=== PATIENT | female | born 1955 | race Caucasian/White ===

== ENCOUNTER 2016-11-24 12:48 | Inpatient (IN) | payer MEDICAID ==
[~2016-11-24] VITALS: Ht 157.5 cm; Wt 59.5 kg
[2016-11-24 14:00] LABS: Basophils # (auto) 0 uL; Basophils % (auto) 0.5 % (0.0-2.0); DEFINITIVE VIEW TRANSMISSION; Eosinophils # (auto) 0.1 uL; Eosinophils % (auto) 1.1 % (0.0-7.0); Hemoglobin 12.5 g/dL (12.2-16.2); Lymphocytes % (auto) 11.1 % (10.0-50.0); Mean Corpuscular Hemoglobin 35.8 pg (28.0-32.0); Mean Corpuscular Hgb Conc. 33.8 g/dL (32.0-36.0); Mean Corpuscular Volume 105.9 fL (80.0-100.0); Mean Platelet Volume 7.7 fL (7.4-10.4); Monocytes # (auto) 0.9 uL; Neutrophils # (auto) 6.7 uL; Neutrophils % (auto) 77.3 % (37.0-80.0); Platelet Count (auto) 175 10^3/uL (140-450); Red Cell Distribution Width 22.1 % (11.6-16.0); White Blood Cell 8.7 10^3/uL (4.4-10.8)
[2016-11-24 14:30] LABS: Albumin 2.4 g/dL (3.4-5.0); Alkaline Phosphatase 149 U/L (45-117); Anion Gap 10 (5-15); Aspartate Aminotransferase 134 U/L (15-37); BUN/Creatinine Ratio 21.6; Bilirubin, Total 7.3 mg/dL (0.2-1.0); Blood Urea Nitrogen 21 mg/dL (7-18); Calcium 8.8 mg/dL (8.5-10.1); Carbon Dioxide 27 mmol/L (21-32); Chloride 103 mmol/L (98-107); GFR African American 75 mL/min; GFR Non-African American 62 mL/min; Glucose 131 mg/dL (74-106); Magnesium 1.8 mg/dL (1.6-2.6); Potassium 3.4 mmol/L (3.5-5.1); Sodium 140 mmol/L (136-145); Total Protein 7.7 g/dL (6.4-8.2)
[2016-11-24 20:01] LABS: Urine Bilirubin Negative (Negative); Urine Color Yellow (Yellow); Urine Glucose Normal (Normal); Urine Ketone Negative (Negative); Urine Nitrite Negative (Negative); Urine RBC 9 /hpf (0 - 4); Urine Squamous Epithelial Cell FEW /hpf (<5); Urine Urobilinogen Normal (Negative)
[2016-11-24 20:02] LABS: Urine Blood 2+ /uL (Negative)
[2016-11-24] MEDS ORDERED: SODIUM CHLORIDE 0.9% 1,000 ML IVB ONE (20:11)
[2016-11-24] MEDS ORDERED: PANTOPRAZOLE SODIUM 40 MG/10 ML VIAL IV ONE (20:15)
[2016-11-24] MEDS ORDERED: ONDANSETRON HCL 4 MG/2 ML VIAL IV ONE (21:00)
[2016-11-24 21:52] LABS: INR 1.73 (0.9-1.15); Partial Thromboplastin Time 29.1 sec (22.64-33.71); Prothrombin Time 18.5 sec (9.37-12.3)
[2016-11-24] MEDS ORDERED: ACETAMINOPHEN/CODEINE#3 (300/30mg) TAB PO ONE (23:00)
[2016-11-25] VITALS (8 sets, daily range): BP systolic 94–119; BP diastolic 53–63
[2016-11-25] MEDS ORDERED: SODIUM CHLORIDE 0.9% 1,000 ML IV SCH (01:20)
[2016-11-25] MEDS ORDERED: POTASSIUM CHL 20 Meq TABLET PO ONE (01:30)
[2016-11-25] MEDS ORDERED: ACETAMINOPHEN 325 MG TAB PO PRN (01:30)
[2016-11-25] MEDS ORDERED: ONDANSETRON HCL 4 MG/2 ML VIAL IV PRN (01:30)
[2016-11-25 02:11] LABS: Hematocrit 33.7 % (36.0-46.0); Hemoglobin 11.1 g/dL (12.2-16.2)
[2016-11-25] MEDS: HYDROcodone-ACET 5/325MG TAB PO PRN ×3 (09:19→21:54)
[2016-11-25] MEDS ORDERED: PANTOPRAZOLE SODIUM 40 MG/10 ML VIAL IV SCH (10:00)
[2016-11-25] MEDS ORDERED: FUROSEMIDE 40 MG TAB ONE (14:19)
[2016-11-25] MEDS ORDERED: FUROSEMIDE 40 MG TAB PO ONE (14:30)
[2016-11-25] MEDS: LACTULOSE 20Gm/30ML SOLN PO SCH (15:18)
[2016-11-26] VITALS (7 sets, daily range): BP systolic 95–106; BP diastolic 42–69
[2016-11-26] MEDS: HYDROcodone-ACET 5/325MG TAB PO PRN ×4 (02:18→21:30)
[2016-11-26 06:33] LABS: Basophils # (auto) 0 uL; Basophils % (auto) 0.2 % (0.0-2.0); DEFINITIVE VIEW TRANSMISSION; Eosinophils # (auto) 0.1 uL; Hematocrit 33.4 % (36.0-46.0); Hemoglobin 11.4 g/dL (12.2-16.2); Lymphocytes # (auto) 0.4 uL; Lymphocytes % (auto) 2.9 % (10.0-50.0); Mean Corpuscular Hemoglobin 36.5 pg (28.0-32.0); Mean Corpuscular Hgb Conc. 34.1 g/dL (32.0-36.0); Mean Platelet Volume 7.3 fL (7.4-10.4); Monocytes # (auto) 0.9 uL; Monocytes % (auto) 6.5 % (0.0-12.0); Neutrophils # (auto) 12.3 uL; Neutrophils % (auto) 89.4 % (37.0-80.0); Platelet Count (auto) 184 10^3/uL (140-450); White Blood Cell 13.8 10^3/uL (4.4-10.8)
[2016-11-26 06:44] LABS: Red Cell Distribution Width 21.2 % (11.6-16.0)
[2016-11-26 06:45] LABS: Albumin 2.1 g/dL (3.4-5.0); BUN/Creatinine Ratio 20.6; Calcium 7.3 mg/dL (8.5-10.1); Potassium 3.9 mmol/L (3.5-5.1)
[2016-11-26 06:48] LABS: Bilirubin, Total 6.1 mg/dL (0.2-1.0); Total Protein 6.8 g/dL (6.4-8.2)
[2016-11-26 08:40] LABS: Anisocytosis Slight; Macrocytosis Slight; Platelet Estimate Adequate
[2016-11-26] MEDS: LACTULOSE 20Gm/30ML SOLN PO SCH (09:36)
[2016-11-26] MEDS: FUROSEMIDE 20 MG TAB PO SCH (09:40)
[2016-11-26] MEDS ORDERED: cefTRIAXone 1GM/50ML D5W 50 ML IV ONE ×2 (10:00→12:15)
[2016-11-26] MEDS: PANTOPRAZOLE SODIUM 40 MG/10 ML VIAL IV SCH (12:13)
[2016-11-26] MEDS: ALBUMIN 25% 100 ML IV SCH ×2 (12:13→13:39)
[2016-11-26 13:25] LABS: Body Fluid Polymorphonuclear 6 %
[2016-11-27] MEDS: HYDROcodone-ACET 5/325MG TAB PO PRN ×4 (03:30→20:27)
[2016-11-27 05:19] VITALS: BP 105/55
[2016-11-27 06:35] LABS: Basophils # (auto) 0 uL; Basophils % (auto) 0.3 % (0.0-2.0); DEFINITIVE VIEW TRANSMISSION; Eosinophils # (auto) 0.2 uL; Eosinophils % (auto) 3.1 % (0.0-7.0); Hematocrit 28.9 % (36.0-46.0); Hemoglobin 9.8 g/dL (12.2-16.2); Lymphocytes # (auto) 0.5 uL; Mean Corpuscular Hemoglobin 36.6 pg (28.0-32.0); Mean Corpuscular Volume 107.5 fL (80.0-100.0); Mean Platelet Volume 6.6 fL (7.4-10.4); Monocytes # (auto) 0.9 uL; Monocytes % (auto) 15.7 % (0.0-12.0); Neutrophils # (auto) 4.2 uL; Neutrophils % (auto) 71.9 % (37.0-80.0); Platelet Count (auto) 150 10^3/uL (140-450); White Blood Cell 5.9 10^3/uL (4.4-10.8)
[2016-11-27 06:37] LABS: Red Cell Distribution Width 21.4 % (11.6-16.0)
[2016-11-27 07:08] LABS: Albumin 2.2 g/dL (3.4-5.0); BUN/Creatinine Ratio 23.3; Potassium 3.9 mmol/L (3.5-5.1)
[2016-11-27 07:10] LABS: Bilirubin, Total 5.6 mg/dL (0.2-1.0)
[2016-11-27 07:11] LABS: Total Protein 6.2 g/dL (6.4-8.2)
[2016-11-27 08:06] LABS: Anisocytosis Slight; Hypochromia Slight; Platelet Estimate Adequate
[2016-11-27 09:00] VITALS: BP 95/57
[2016-11-27] MEDS ORDERED: cefTRIAXone 1GM/50ML D5W 50 ML IV SCH (09:00)
[2016-11-27] MEDS: PANTOPRAZOLE SODIUM 40 MG/10 ML VIAL IV SCH (10:29)
[2016-11-27] MEDS: FUROSEMIDE 20 MG TAB PO SCH (10:30)
[2016-11-27] MEDS: LACTULOSE 20Gm/30ML SOLN PO SCH (10:34)
[2016-11-27 13:00] VITALS: BP 97/57
[2016-11-27 17:14] VITALS: BP 127/55
[2016-11-27 21:59] VITALS: BP 100/56
[2016-11-28 01:07] LABS: Albumin, Body Fluid 0.3 g/dL (.)
[2016-11-28] MEDS: HYDROcodone-ACET 5/325MG TAB PO PRN ×4 (01:22→16:55)
[2016-11-28 05:05] VITALS: BP 111/64
[2016-11-28 06:11] LABS: Basophils # (auto) 0 uL; Basophils % (auto) 0.4 % (0.0-2.0); DEFINITIVE VIEW TRANSMISSION; Eosinophils # (auto) 0.2 uL; Eosinophils % (auto) 3.9 % (0.0-7.0); Hemoglobin 10.3 g/dL (12.2-16.2); Lymphocytes # (auto) 0.9 uL; Lymphocytes % (auto) 17.2 % (10.0-50.0); Mean Corpuscular Hemoglobin 37.1 pg (28.0-32.0); Mean Corpuscular Hgb Conc. 34.4 g/dL (32.0-36.0); Mean Corpuscular Volume 107.8 fL (80.0-100.0); Mean Platelet Volume 6.6 fL (7.4-10.4); Monocytes % (auto) 17.8 % (0.0-12.0); Neutrophils # (auto) 3.3 uL; Neutrophils % (auto) 60.7 % (37.0-80.0); Platelet Count (auto) 155 10^3/uL (140-450); White Blood Cell 5.4 10^3/uL (4.4-10.8)
[2016-11-28 06:17] LABS: Red Cell Distribution Width 20.8 % (11.6-16.0)
[2016-11-28 06:27] LABS: Potassium 3.6 mmol/L (3.5-5.1)
[2016-11-28 06:38] LABS: Calcium 7.4 mg/dL (8.5-10.1); Phosphorus 2.1 mg/dL (2.5-4.90)
[2016-11-28 07:34] LABS: Anisocytosis Slight; Platelet Estimate Adequate
[2016-11-28 07:35] LABS: Macrocytosis Slight
[2016-11-28 07:56] VITALS: BP 106/54
[2016-11-28] MEDS: LACTULOSE 20Gm/30ML SOLN PO SCH (10:00)
[2016-11-28] MEDS: FUROSEMIDE 20 MG TAB PO SCH (10:30)
[2016-11-28] MEDS: PANTOPRAZOLE SODIUM 40 MG/10 ML VIAL IV SCH (10:32)
[2016-11-28] MEDS ORDERED: FURO20TA PO (11:40)
[2016-11-28] MEDS ORDERED: LACT10SO PO (11:40)
[2016-11-28] MEDS ORDERED: SPIR50TA2 PO (11:40)
[2016-11-28] MEDS ORDERED: PANT40T PO (11:40)
[2016-11-28] MEDS ORDERED: NEUTRA-PHOS TABLET PO ONE (11:45)
[2016-11-28 12:14] VITALS: BP 95/60
[2016-11-28 16:40] VITALS: BP 95/60
[2016-11-28 17:07] VITALS: BP 109/56
== END 2016-11-28 18:45 | disposition home or self-care (01) | DRG 280 ==
LOC: ER 12:48 → EAST 12:49
PROVIDERS: ADMIT Nurse Practitioner; ATTEND Internal Medicine
PROC: 0W9G30Z Drainage of Peritoneal Cavity with Drainage Device, Percutaneous Approach (ICD-10-PCS; principal; 2016-11-24)
DX: K70.31 Alcoholic cirrhosis of liver with ascites (principal); E43 Unspecified severe protein-calorie malnutrition; D68.9 Coagulation defect, unspecified; K57.31 Diverticulosis of large intestine without perforation or abscess with bleeding; E87.1 Hypo-osmolality and hyponatremia; D62 Acute posthemorrhagic anemia; E88.09 Other disorders of plasma-protein metabolism, not elsewhere classified; D75.89 Other specified diseases of blood and blood-forming organs; E87.6 Hypokalemia; I25.10 Atherosclerotic heart disease of native coronary artery without angina pectoris; K42.9 Umbilical hernia without obstruction or gangrene; K80.20 Calculus of gallbladder without cholecystitis without obstruction; R31.9 Hematuria, unspecified; Z88.1 Allergy status to other antibiotic agents; Z88.8 Allergy status to other drugs, medicaments and biological substances; Z68.24 Body mass index [BMI] 24.0-24.9, adult
CPT/HCPCS: 36415; 71010; 74176; 76700; 76942; 80048; 80053; 81001; 82140; 82270; 83735; 83986; 84100; 84484; 85014; 85018; 85025; 85610; 85730; 86850; 86900; 86901; 87205; 89051; 93005; 94761; C9113; J0696; J2405